=== PATIENT | female | born 1945 | race Caucasian/White ===

== ENCOUNTER 2024-01-27 15:39 | Inpatient (IN) | payer MEDICARE, OTHER, SELFPAY ==
[2024-01-27] VITALS (13 sets, daily range): BP systolic 92–154; BP diastolic 51–80; BMI 27.1; BMI 27.5
[2024-01-27 09:28] LABS: % Basophils 0.3 % (0-2); % Immature Granulocytes 0.8 % (0-0.5); % Lymphocytes 2.3 % (20.5-51.1); % Monocytes 10.8 % (1.7-9.3); % Neutrophils 85.8 % (42.2-75.2); Absolute Basophils 0.1 10^3/uL (0-0.2); Absolute Immature Granulocytes 0.2 10^3/uL (0-0.05); Absolute Lymphocytes 0.5 10^3/uL (1.2-3.4); Absolute Monocytes 2.1 10^3/uL (0.1-0.6); Hematocrit 32.9 % (37.0-47.0); Hemoglobin 11.9 g/dL (12.0-16.0); Mean Corp Hgb Conc. 36.2 g/dL (33.0-37.0); Mean Corpuscular Hgb 32.6 pg (27.0-31.0); Mean Corpuscular Volume 90.1 fL (81.0-99.0); Mean Platelet Volume 8.9 fL (7.4-10.4); Nucleated Red Blood Cells % 0 %; Platelet Count 252 10^3/uL (130-400); Red Blood Cell Count 3.65 10^6/uL (4.20-5.40); Red Cell Dist. Width 13.1 % (11.5-14.5); White Blood Cell Count 19.7 10^3/uL (4.8-10.8)
[2024-01-27] MEDS: TYLENOL 1000 MG PO (09:37)
[2024-01-27 09:38] LABS: ALT (SGPT) 49 U/L (0-35); AST (SGOT) 66 U/L (14-36); Alkaline Phosphatase 119 U/L (38-126); Blood Urea Nitrogen 17 mg/dl (7-17); Calcium 8.7 mg/dl (8.4-10.2); Carbon Dioxide 22 mmol/L (22-30); Chloride 93 mmol/L (98-107); Estimated Creatinine Clearance 36 ml/min; Glucose 147 mg/dl (70-99); Potassium 3.9 mmol/L (3.5-5.1); Sodium 125 mmol/L (135-145); Total Bilirubin 1.1 mg/dl (0.2-1.3); Total Protein 6.5 g/dl (6.3-8.2); eGFR 46.62
[2024-01-27] MEDS: NSS 1000 IV ×3 (09:38→19:42)
[2024-01-27 09:40] LABS: Lactic Acid 1.8 mmol/L (0.7-2.0)
--- NOTE | 2024-01-27 09:53 | ED.GENMED ---
History of Present Illness
General
Chief Complaint: Weakness
Time Seen by Provider: 01/27/24 09:09
History of Present Illness
History of Present Illness:
78-year-old female with history of hypothyroidism, hypertension presenting to the emergency department for generalized weakness and feeling unwell. Patient reports symptoms for the past 3 days. Reports that she has been having fevers at home as
well. Denies known sick contacts. She took a COVID test at home which was negative. She also reports she had a cystoscopy about a week ago for ongoing painful urination. Denies any present dysuria. Denies cough. Denies chest pain. Did have 1
episode of vomiting and diarrhea. Denies any abdominal pain. Reports that she has been feeling so weak that she has fallen, however denies significant injury from fall or head strike. Denies additional acute medical complaints.
Past History
Past History
ED Past Medical History: Hypothyroidism and Other (diverticulitis)
ED Past Surgical History: Other (hysterectomy)
Social History
Drug: None
Personal:
Living: with family
Phy Exam
Physical Exam
Physical Exam:
General: Well-appearing, no clinical signs of dehydration, nontoxic and in no acute distress
HEENT: protecting airway
Neck: appears supple
CV: Normal rhythm, tachycardic, no evidence of cyanosis
Resp: No accessory muscle use, no increased work of breathing, lungs clear to auscultation bilaterally
Abd: Soft and non-distended, no tenderness to palpation, normal bowel sounds
Extremities: No deformities, no swelling, no erythema, pulses and sensation intact
Neuro: alert, no focal neurologic deficit
: deferred
Rectal: deferred
Psych: Normal affect
Skin: Intact
Course
Orders/Labs/Results
Orders:
Orders
01/27/24 08:41
ECG [Electrocardiogram (*1)] Urgent
Reason for Study: Fatigue / Weakness
01/27/24 08:42
EKG- Treatment ONCE
01/27/24 09:15
Complete Blood Count/With Diff Urgent
Comprehensive Metabolic Panel Urgent
Lactate Level [Lactic Acid] Q4H
01/27/24 09:32
0.9% Sodium Chloride 1000 ml [Nss] 1,000 ml IV BOLUS
Acetaminophen [Tylenol] 1,000 mg PO NOW STA
CR Chest - 2 Views Urgent
Comment:
Reason For Exam: weakness, fever
01/27/24 09:40
COVID-19 Antigen Urgent
Source: Nasal Swab
Influenza A+B Rapid Molecular Urgent
FINN Source: Nasal Swab
Specimen Description:
01/27/24 10:33
Blood Culture Urgent
FINN Source: Blood/Venous
Specimen Description:
01/27/24 11:36
0.9% Sodium Chloride 1000 ml [Nss] 1,000 ml IV BOLUS
01/27/24 12:54
Urinalysis Reflex To Culture Urgent
Date Specimen was Collected: 01/27/24
Time Specimen was Collected: 10:41
Urine Microscopic Reflex Cult Urgent
Urine Culture Urgent
FINN Source: U
Specimen Description:
Date Specimen was Collected: 01/27/24
Time Specimen was Collected: 10:41
01/27/24 13:50
Cefepime HCl [Maxipime] 2,000 mg IV NOW STA
Abnormal Lab Results
01/27/24 01/27/24
09:15 12:54
WBC 19.7 H 10^3/uL
(4.8-10.8)
RBC 3.65 L 10^6/uL
(4.20-5.40)
Hgb 11.9 L g/dL
(12.0-16.0)
Hct 32.9 L %
(37.0-47.0)
MCH 32.6 H pg
(27.0-31.0)
Abs Immat Gran (auto) 0.2 H 10^3/uL
(0-0.05)
Absolute Neuts (auto) 17.0 H 10^3/uL
(1.4-6.5)
Absolute Lymphs (auto) 0.5 L 10^3/uL
(1.2-3.4)
Absolute Monos (auto) 2.1 H 10^3/uL
(0.1-0.6)
Immature Gran % 0.8 H %
(0-0.5)
Neutrophils % 85.8 H %
(42.2-75.2)
Lymphocytes % 2.3 L %
(20.5-51.1)
Monocytes % 10.8 H %
(1.7-9.3)
Sodium 125 L mmol/L
(135-145)
Chloride 93 L mmol/L
(98-107)
Creatinine 1.2 H mg/dL
(0.6-1.0)
Glucose 147 H mg/dl
(70-99)
AST 66 H U/L
(14-36)
ALT 49 H U/L
(0-35)
Urine Ketones Trace A
(Negative)
Ur Occult Blood Reflex 2+ A
(Negative)
Urine Bilirubin 1+ A
(Negative)
Leukocyte Esterase Rfl 2+ A
(Negative)
Urine Albumin (Reflex) 1+ A
(Neg - Trace)
01/27/24 09:15
01/27/24 09:15
Vital Signs
Initial and Last Documented VS:
Initial Vital Signs
Temp Pulse Resp BP Pulse Ox
99.5 F 125 22 92/57 94
01/27/24 08:35 01/27/24 08:35 01/27/24 08:35 01/27/24 08:35 01/27/24 08:35
Last Documented Vital Signs
Temp Pulse Resp BP Pulse Ox
99.2 F 89 34 110/79 93
01/27/24 09:31 01/27/24 13:00 01/27/24 13:00 01/27/24 13:00 01/27/24 12:00
MDM/Problems Addressed
MDM/Problems Addressed:
78-year-old female with history of hypothyroidism and hypertension presenting to the emergency department for generalized weakness and fever at home for 3 days. Vital signs on arrival significant for low blood pressure and tachycardia.
On exam, patient is in no acute distress. Vital signs however concerning for infection. Patient without true fever, 99.2 orally, however suspected likely febrile rectally. Patient is meeting SIRS criteria. For this reason laboratory analysis
obtained. Will obtain lactic acid. Will start on IV fluids. Unclear source of infection. Will swab for COVID and flu. Will obtain chest x-ray imaging. Given recent cystoscopy, will also check urinalysis.
09:55- Patient's sodium is 125, likely etiology of generalized weakness. Will continue IV fluids. Patient also with significant leukocytosis. Blood culture ordered
11:00 -chest x-ray without acute cardiopulmonary disease. Delay in antibiotic administration, pending urinalysis. Patient was unable to provide urine, on bladder scan, only 90 cc of urine. Suspect dehydration. Will administer another liter of
fluids. Holding antibiotics given hemodynamic stability, blood pressure is improved, normal lactic acid without concern for severe sepsis or septic shock.
14:00 -patient had to be straight cath, very dry. Urine does show evidence of infection. Will start cefepime. Otherwise patient requires admission for generalized weakness, hyponatremia, sepsis suspected from urinary source.
*Critical Care Note
Total Time (30-74mins, 75-104mins- exclusive of procedures): Not Applicable
ED Attending Note
-
Portions of this chart may have been created with voice recognition software.� Occasional wrong word or��sound alike� substitutions may have occurred due to the inherent limitations of voice recognition software.
Discharge Plan
Departure
Prescriptions:
No Action
polyvinyl alcohol [Dry Eyes] 1.4 % Drops
1 drp BOTH EYES Q6HPRN PRN (Reason: dry eyes)
milk thistle 175 mg Tablet
175 mg PO HS
cyanocobalamin (vitamin B-12) 1,000 mcg Tablet
1,000 mcg PO DAILY
Theragen Tablet
1 tab PO DAILY
valsartan-hydrochlorothiazide 80-12.5 mg Tablet
1 tab PO DAILY
levothyroxine 88 mcg Tablet
88 mcg PO DAILY
pantoprazole 40 mg Tablet,Delayed Release (Dr/Ec)
40 mg PO DAILY
vitamin B complex Tablet
1 tab PO DAILY
ezetimibe 10 mg Tablet
10 mg PO DAILY
Tylenol Cold and Flu Severe 7-15-055-200 mg Tablet
2 tab PO Q6HPRN PRN (Reason: cold symptoms)
lutein 10 mg Tablet
10 mg PO HS
vitamin D3-vitamin K2 (MK4) 1,000-100 unit-mcg Tablet
1 tab PO DAILY
Referrals:
Abdelrahman Trujillo DO [Family Provider] -
Interventions
Interventions:
*Risk Screen - Suicide Last Done: 01/27/24 08:35
*General Assessment Last Done: 01/27/24 08:35
*Neglect/Abuse Screening Last Done: 01/27/24 08:35
ED- Cardiac Assessment Last Done: 01/27/24 09:17
ED- Neurological Assessment Last Done: 01/27/24 09:17
ED- Pulmonary Assessment Last Done: 01/27/24 09:17
Discharge Date and Time
Print Language: GREEK
[2024-01-27 10:14] LABS: COVID-19 Antigen Negative (Negative)
[2024-01-27 13:46] LABS: Urine Albumin 1+ (Neg - Trace); Urine Bilirubin 1+ (Negative); Urine Character Very Cloudy (Clear); Urine Color Amber; Urine Glucose Negative (Negative); Urine Ketone Trace (Negative); Urine Leukocyte 2+ (Negative); Urine Nitrite Negative (Negative); Urine Occult Blood 2+ (Negative); Urine Urobilinogen 1+ (Neg - 1+)
[2024-01-27] MEDS: MAXIPIME 2000 MG IV (13:56)
[2024-01-27 14:02] LABS: Urine Bacteria Moderate (Negative); Urine Squamous Cell 0-2 /LPF (Few)
[2024-01-27 14:03] LABS: Urine Red Blood Cell 0-2 /HPF (0-2); Urine White Cell 50-60 /HPF (0-5)
--- NOTE | 2024-01-27 15:14 | W.PN.UPDATE ---
Update Note
Progress Note Update
I personally performed a history and physical exam of the patient and discussed management with the resident. I reviewed the resident's note and agree with the documented findings and plan of care HPI/CC.
78-year-old female with a pertinent past medical history of recurrent urinary tract infections who is 6 days s/p cystoscopy who presents with CC weakness. Patient was hypotensive and tachycardic in the ER.
124/72, 88, 17, 99.2 �F, 95% RAGen: NAD, AAOx3.
Eyes: EOMI, PERRLA, no scleral icterus.
Neck: supple.
CV: RRR, +S1/S2, no m/r/g.
Resp: CTAB, no rales, wheezes, or rhonchi.
Abd: +BS, soft, NT, ND
Skin: No rashes.
Neuro: CN 2-12 intact, non-focal.
Psych: Normal mood and affect.
Lab Results
01/27/24 01/27/24 01/27/24
09:15 09:40 09:46
WBC 19.7 H
RBC 3.65 L
Hgb 11.9 L
Hct 32.9 L
MCV 90.1
MCH 32.6 H
MCHC 36.2
RDW 13.1
Plt Count 252
MPV 8.9
Abs Immat Gran (auto) 0.2 H
Absolute Neuts (auto) 17.0 H
Absolute Lymphs (auto) 0.5 L
Absolute Monos (auto) 2.1 H
Absolute Eos (auto) 0.0
Absolute Basos (auto) 0.1
Immature Gran % 0.8 H
Neutrophils % 85.8 H
Lymphocytes % 2.3 L
Monocytes % 10.8 H
Eosinophils % 0.0
Basophils % 0.3
Nucleated RBC % 0
Sodium 125 L
Potassium 3.9
Chloride 93 L
Carbon Dioxide 22
BUN 17
Creatinine 1.2 H
Estimated Creat Clear 36
eGFR 46.62
Glucose 147 H
Lactic Acid 1.8 Cancelled
Calcium 8.7
Total Bilirubin 1.1
AST 66 H
ALT 49 H
Alkaline Phosphatase 119
Total Protein 6.5
Albumin 4.0
Urine Color
Urine Clarity
Urine pH
Ur Specific [place]
Urine Ketones
Ur Occult Blood Reflex
Urine Nitrite (Reflex)
Urine Bilirubin
Urine Urobilinogen
Leukocyte Esterase Rfl
Urine RBC
Urine WBC (Reflex)
Ur Squamous Epith Cells
Urine Bacteria (Reflex)
Urine Glucose
Urine Albumin (Reflex)
SARS-CoV-2 Antigen Negative
01/27/24 01/27/24
12:54 13:15
WBC
RBC
Hgb
Hct
MCV
MCH
MCHC
RDW
Plt Count
MPV
Abs Immat Gran (auto)
Absolute Neuts (auto)
Absolute Lymphs (auto)
Absolute Monos (auto)
Absolute Eos (auto)
Absolute Basos (auto)
Immature Gran %
Neutrophils %
Lymphocytes %
Monocytes %
Eosinophils %
Basophils %
Nucleated RBC %
Sodium
Potassium
Chloride
Carbon Dioxide
BUN
Creatinine
Estimated Creat Clear
eGFR
Glucose
Lactic Acid Cancelled
Calcium
Total Bilirubin
AST
ALT
Alkaline Phosphatase
Total Protein
Albumin
Urine Color Alix
Urine Clarity Very cloudy
Urine pH 5.0
Ur Specific [place] 1.020
Urine Ketones Trace A
Ur Occult Blood Reflex 2+ A
Urine Nitrite (Reflex) Negative
Urine Bilirubin 1+ A
Urine Urobilinogen 1+
Leukocyte Esterase Rfl 2+ A
Urine RBC 0-2
Urine WBC (Reflex) 50-60 A
Ur Squamous Epith Cells 0-2
Urine Bacteria (Reflex) Moderate A
Urine Glucose Negative
Urine Albumin (Reflex) 1+ A
SARS-CoV-2 Antigen
CXR (read by me): No radiographic evidence of acute cardiopulmonary abnormality.
LEON and mild transaminitis due to severe sepsis due to acute UTI:
-30cc/kg IVF bolus followed by maintenance IVFs
-IV Rocephin
-follow UCx/BCx
-trend Cr
-hold home antihypertensive meds
Hyponatremia:
-Patient requires fluid resuscitation at this time due to severe sepsis
-Trend Na with IVFs
-check serum Osm, UOsm, Ciaran
--- NOTE | 2024-01-27 15:34 | HPS.HSE ---
Family Physician
-
Family Physician: Abdelrahman Trujillo, DO
Chief Complaint
-
Generalized weakness
History of Present Illness
78-year-old female presents to the ED with generalized weakness. For the past few days she has had a history of fevers,chills, muscle aches, weakness, nausea, vomiting, diarrhea. Yesterday she fell twice and was unable to stand back up because she
was so weak which is what prompted her to come to the ED. She denies any trauma or loss of consciousness. She denies any chest pain, heart palpitations, or abdominal pain. She has a history of recurrent UTIs and had a cystoscopy done on Saturday
for evaluation of bloody urine. She generally has a few UTIs a year but this past year has been especially bad. She currently denies any UTI symptoms.
ED: BP 92/57, HR 125, RR 22, temp 99.5, WBC 19.7, Lactic acid 1.8, Na 125, Cr 1.2 (baseline 0.6), UA Leukocyte esterase (+), 50-60 WBC, 0-2 squamous epithelia cells, moderate bacteria, she was given 2 L of fluid and cefepime.
Medical History
Past Medical History
Past Medical History: Reports Other (Hypothyroidism, hypertension, recurrent UTIs, GERD, hyperlipidemia, beginnings of macular degeneration, diverticulitis)
Past Surgical History: Reports Other (Hysterectomy, colon resection (secondary to the diverticulitis))
Social History
Tobacco: Former Smoker (Quit 40 years ago. Prior 10 year 1ppd hx)
Alcohol: Occasional
Drug: None
Family History
Family History: Other (mom - heart dz, dad - lung cancer, paternal grandfather - melanoma)
Allergies / Home Medications
Allergies reflects when Allergies were last updated in [facility].
Home Medications with original date entered in [facility]
Allergy/Medication List:
Allergies
Allergy/AdvReac Type Severity Reaction Status Date / Time
No Known Drug Allergies Allergy NONE Verified 01/27/24 08:35
Home Medications
cholecalciferol (vit D3) 1,000 unit-vitamin K2 (MK4) 100 mcg tablet 1 tab PO DAILY 01/27/24
cyanocobalamin (vitamin B-12) 1,000 mcg tablet 1,000 mcg PO DAILY 01/27/24
ezetimibe 10 mg tablet 10 mg PO DAILY 01/27/24
levothyroxine 88 mcg tablet 88 mcg PO DAILY 01/27/24
lutein 10 mg tablet 10 mg PO HS 01/27/24
milk thistle 175 mg tablet 175 mg PO HS 01/27/24
pantoprazole 40 mg tablet,delayed release 40 mg PO DAILY 01/27/24
xnhtmzkfqzgjn-LU-ldwvnlvigwcsp-guaifen 5 mg-10 mg-325 mg-200 mg tablet (Tylenol Cold and Flu Severe) 2 tab PO Q6HPRN PRN cold symptoms 01/27/24
polyvinyl alcohol 1.4 % eye drops 1 drp BOTH EYES Q6HPRN PRN dry eyes 01/27/24
therapeutic multivitamin 1 tab PO DAILY 01/27/24
valsartan 80 mg-hydrochlorothiazide 12.5 mg tablet 1 tab PO DAILY 01/27/24
vitamin B complex 1 tab PO DAILY 01/27/24
Review of Systems
-
History Source: Patient
Constitutional: Reports Fever, Fatigue and Chills
EENT: Reports No Symptoms
Respiratory: Reports No Symptoms
Cardiac: Reports No Symptoms
Abdomen/GI: Reports No Symptoms
: Reports No Symptoms
Musculoskeletal: Reports No Symptoms
Skin: Reports No Symptoms
Neurological: Reports No Symptoms
Psych: Reports Calm
Physical Exam
Vital Signs
Vital Signs
Temp Pulse Resp BP Pulse Ox
99.2 F 88 17 124/72 95
01/27/24 09:31 01/27/24 15:01 01/27/24 15:01 01/27/24 15:01 01/27/24 15:01
Physical Exam
General: Comfortable and Conversant
Respiratory: Clear
Cardiac: S1/S2 and Regular Rhythm
GI: Soft, Non Tender, Non Distended and Other (no suprapubic tenderness)
Genito-urinary: No No costovertebral tender
Musculoskeletal: No Edema
Skin: Warm and Dry
Neuro: AO x 3
Psych: Calm
Laboratory Results
-
01/27/24 09:15
01/27/24 09:15
Laboratory Results
Lactic Acid Cancelled 01/27/24 13:15
Total Bilirubin 1.1 mg/dl (0.2-1.3) 01/27/24 09:15
AST 66 U/L (14-36) H 01/27/24 09:15
ALT 49 U/L (0-35) H 01/27/24 09:15
Alkaline Phosphatase 119 U/L (38-126) 01/27/24 09:15
Impression/Plan
-
IMPRESSION/PLAN:
# Sepsis secondary to UTI
BP 92/57, heart rate 125, RR 22, WBC 19.7, lactic 1.8
UTI 2+ leukocyte esterase, 50-60 WBC, moderate bacteria, 2+ blood
COVID-negative
Chest x-ray negative
2 L NSS given in ED
Continue with maintenance fluid as pt BP has stabilized
d/c cefepime, continue with ceftriaxone
1 blood culture pending -- taken in ED, then antibiotics given so not taking a second blood culture
Urine culture pending
Antihypertensives on hold
Medical records for cystoscopy results requested
# Hyponatremia
NA 125 on admission
Giving fluids due to hypotension and sepsis
Urine osml, serum osml, urine sodium
Hold valsartan/HTCZ
# LEON
Creatinine 1.6 on admission
Baseline 0.6
Hold valsartan, hydrochlorothiazide
Bladder scan protocol
# Hypotension
Hold antihypertensives
Fluids
# Transaminitis
Patient has a history of elevated LFTs for which she takes milk thistle
Stated it occurred after being on a statin continues taking the supplement
AST 66 ALT 49 on admission likely secondary to sepsis
Monitor
# Anemia - baseline 11-12 - monitor
# Essential hypertension--current antihypertensives are on hold--restart when BP stabilizes
# Hypothyroidism--continue levothyroxine
# GERD--continue pantoprazole
# Hyperlipidemia--continue ezetimibe
#Macular degeneration--continue eyedrops and eye vitamins
#hx colon resection secondary to diverticultits
#hx hysterectomy
[2024-01-27] MEDS: TYLENOL 650 MG PO (17:18)
[2024-01-27 18:21] LABS: Osmolality Urine 368 mOsm/kg (300-900)
[2024-01-27 18:43] LABS: Urine Sodium 19 mmol/L (30-90)
[2024-01-27 19:23] LABS: Osmolality Serum 262 mOsm/kg (275-300)
[2024-01-27] MEDS: FLUSH (NSS) 1 FLUSH IV (19:45)
[2024-01-27] MEDS: HEPARIN 5000 UNITS SC (20:32)
[2024-01-27] MEDS: ZOFRAN 4 MG IV (20:33)
[2024-01-28] VITALS (7 sets, daily range): BP systolic 100–145; BP diastolic 49–75; PULSE 92; O2SAT 99
[2024-01-28] MEDS: TYLENOL 650 MG PO ×4 (00:03→20:32)
[2024-01-28] MEDS: SYNTHROID 88 MCG PO (04:48)
[2024-01-28] MEDS: NSS 1000 IV (06:04)
[2024-01-28 08:50] LABS: Hematocrit 27.2 % (37.0-47.0); Hemoglobin 9.4 g/dL (12.0-16.0); Mean Corp Hgb Conc. 34.6 g/dL (33.0-37.0); Mean Corpuscular Hgb 31.1 pg (27.0-31.0); Mean Corpuscular Volume 90.1 fL (81.0-99.0); Mean Platelet Volume 9.3 fL (7.4-10.4); Platelet Count 240 10^3/uL (130-400); Red Blood Cell Count 3.02 10^6/uL (4.20-5.40); Red Cell Dist. Width 13.2 % (11.5-14.5); White Blood Cell Count 17.2 10^3/uL (4.8-10.8)
[2024-01-28 09:07] LABS: ALT (SGPT) 28 U/L (0-35); AST (SGOT) 35 U/L (14-36); Albumin 2.9 g/dl (3.5-5.0); Alkaline Phosphatase 97 U/L (38-126); Blood Urea Nitrogen 12 mg/dl (7-17); Calcium 7.8 mg/dl (8.4-10.2); Carbon Dioxide 18 mmol/L (22-30); Chloride 100 mmol/L (98-107); Estimated Creatinine Clearance 62 ml/min; Glucose 88 mg/dl (70-99); Potassium 3.7 mmol/L (3.5-5.1); Sodium 126 mmol/L (135-145); Total Bilirubin 0.6 mg/dl (0.2-1.3); eGFR > 60.00
[2024-01-28 09:10] LABS: % Basophils 0.3 % (0-2); % Eosinophils 0.1 % (0-6); % Lymphocytes 3.8 % (20.5-51.1); % Monocytes 13.8 % (1.7-9.3); Absolute Basophils 0.1 10^3/uL (0-0.2); Absolute Immature Granulocytes 0.2 10^3/uL (0-0.05); Absolute Lymphocytes 0.7 10^3/uL (1.2-3.4); Absolute Monocytes 2.4 10^3/uL (0.1-0.6); Nucleated Red Blood Cells % 0 %
--- NOTE | 2024-01-28 09:47 | W.PN.HOSP.TC ---
Addendum entered and electronically signed by Junior Perdue MD 01/28/24 11:03:
I saw and evaluated the patient. I reviewed the resident�s note and agree with findings and plan as documented in the resident�s note.
Gen: NAD, AAOx3.
Eyes: EOMI, PERRLA, no scleral icterus.
Neck: supple.
CV: remains RRR, +S1/S2, no m/r/g.
Resp: remains CTAB, no rales, wheezes, or rhonchi.
Abd: remains +BS, soft, NT, ND
Skin: No rashes.
Neuro: CN 2-12 intact, non-focal.
Psych: Normal mood and affect.
CXR (read by me): No radiographic evidence of acute cardiopulmonary abnormality.
LEON and mild transaminitis due to severe sepsis due to acute UTI:
-30cc/kg IVF bolus followed by maintenance IVFs
-IV Rocephin
-follow UCx (E coli, follow susceptibilities)/BCx
-Cr normal, LEON resolved
-holding home antihypertensive meds
Hyponatremia:
-Serum Osm 262, UOsm 368, Ciaran 19
-Patient required fluid resuscitation due to severe sepsis
-Trend Na with IVFs
Original Note:
Today's Communication/Plan
-
Continue fluids and Rocephin. Monitor BMP
Assessment / Plan
Assessment / Plan
# Sepsis secondary to UTI
BP 92/57, heart rate 125, RR 22, WBC 19.7, lactic 1.8
UTI 2+ leukocyte esterase, 50-60 WBC, moderate bacteria, 2+ blood
COVID-negative
Chest x-ray negative
2 L NSS given in ED
Continue with maintenance fluid as pt BP has stabilized
d/c cefepime, continue with ceftriaxone
Follow urine and blood cultures
Antihypertensives on hold
Medical records for cystoscopy results requested
# Hyponatremia
NA 125 on admission. Today 126
Giving fluids due to hypotension and sepsis
Hold valsartan/HTCZ
Serum osml slightly low, urine osml normal low
Likely dehydration
Continue fluids
# LEON
Creatinine 1.6 on admission
Baseline 0.6
Hold valsartan, hydrochlorothiazide
Bladder scan normal. No post-bladder obstruction.
# Hypotension
Hold antihypertensives
Fluids
# Transaminitis
resolved
# Anemia - baseline 11-12 - today 9.4. Likely dilution with fluids. Monitor
# Essential hypertension--current antihypertensives are on hold--restart when BP stabilizes
# Hypothyroidism--continue levothyroxine
# GERD--continue pantoprazole
# Hyperlipidemia--continue ezetimibe
#Macular degeneration--continue eyedrops and eye vitamins
#hx colon resection secondary to diverticultits
#hx hysterectomy
Anticipated Discharge: 24 - 48 hours
Subjective/Interval History
-
Date of Service: January 28, 2024
Pt feels better than yesterday but still weak. Was able to eat breakfast unlike not being able to eat last few days.
Objective Data
-
Labs:
Laboratory Results
01/28/24
07:31
WBC 17.2 H
Hgb 9.4 L D
Hct 27.2 L
Plt Count 240
Sodium 126 L
Potassium 3.7
Chloride 100
Carbon Dioxide 18 L
BUN 12
Creatinine 0.7
Glucose 88
Calcium 7.8 L
Total Bilirubin 0.6
AST 35
ALT 28
Alkaline Phosphatase 97
Vital Signs:
Vital Signs
Temp Pulse Resp BP Pulse Ox
98.5 F 85 20 109/55 95
01/28/24 07:00 01/28/24 07:00 01/28/24 07:00 01/28/24 07:00 01/28/24 07:00
I&O
01/27/24 01/28/24 01/29/24
06:59 06:59 06:59
Intake Total 0 / 0
Output Total 200 / 200
Balance -200 / -200
Review of Systems
-
History Source: Patient
Constitutional: Reports Chills (during the night)
EENT: Reports No Symptoms Reported
Respiratory: Reports No Symptoms
Cardiac: Reports No Symptoms
Abdomen/GI: Reports No Symptoms
Genitourinary: Reports No Symptoms
Musculoskeletal: Reports No Symptoms
Skin: Reports No Symptoms
Neuro: Reports Headache and Weakness
Physical Exam
-
General: No Apparent Distress
Respiratory: Clear to Auscultation
Cardiac: Regular Rhythm and S1/S2
GI: Soft, Nontender and Nondistended
Musculoskeletal: No Edema
Skin: Warm and Dry
Neuro: AO x 3
Psych: Calm
[2024-01-28 09:53] LABS: Hepatitis C Antibody Negative (Negative)
--- NOTE | 2024-01-28 10:20 | CM ---
Patient seen bedside, initial assessment completed. Patient resides independently in a two story home, one step to enter. Patient denies use of DME in the home, reports VN in the past after a cyst was removed on her back, denies SNF. Patient
confirms PCP Abdelrahman Trujillo, pharmacy [facility] in [place]. Patient confirms prescription coverage, denies food, housing/utility, transportation insecurities. Watch for PT/OT evaluations for further recommendations. Patient on IV antibiotics. CM will
continue to follow for all discharge planning needs.
Plan; home no needs vs VN, watch for PT/OT evals.
[2024-01-28] MEDS: ROCEPHIN 1000 MG IV (10:42)
[2024-01-28] MEDS: STERILE WATER FOR INJECTION 10 ML IV (10:43)
[2024-01-28] MEDS: PROTONIX 40 MG PO (10:43)
[2024-01-28] MEDS: VITAMIN B-12 1000 MCG PO (10:43)
[2024-01-28] MEDS: HEPARIN 5000 UNITS SC ×2 (10:43→20:31)
[2024-01-28] MEDS: B COMPLEX w/VITAMIN C 1 CAPLET PO (10:43)
[2024-01-28] MEDS: ZETIA 10 MG PO (10:43)
--- NOTE | 2024-01-28 12:04 | PTOTSP ---
Pt is able to get OOB and ambulate independently without need for any assistive device. No acute PT needs were identified. PT will sign off.
[2024-01-28 12:30] LABS: Glycohemoglobin (HgbA1c) 5.7 % (4.0-5.6)
[2024-01-28] MEDS: NSS IV (12:37)
[2024-01-28] MEDS: SODIUM BICARBONATE 1075 MEQ IV (12:42)
[2024-01-29] MEDS: TYLENOL 650 MG PO ×2 (00:33→15:24)
[2024-01-29] MEDS: SODIUM BICARBONATE 1075 MEQ IV ×2 (01:06→11:00)
--- NOTE | 2024-01-29 04:34 | DOWNTIME ---
There was a [employer] Assistant [employer] Downtime on 01/29/2024 from 0100 to 01/29/2024 at 0252. Downtime documentation of patient's care, including medication administrations, has been reconciled in the electronic record per guidelines. Refer to the
patient's paper chart under the miscellaneous tab to see printed paper medication records and downtime forms.
[2024-01-29] MEDS: SYNTHROID 88 MCG PO (05:59)
[2024-01-29 07:35] VITALS: BP 127/68
[2024-01-29] MEDS: ROCEPHIN 1000 MG IV (08:06)
[2024-01-29] MEDS: VITAMIN B-12 1000 MCG PO (08:07)
[2024-01-29] MEDS: B COMPLEX w/VITAMIN C 1 CAPLET PO (08:07)
[2024-01-29] MEDS: PROTONIX 40 MG PO (08:07)
[2024-01-29] MEDS: STERILE WATER FOR INJECTION 10 ML IV (08:07)
[2024-01-29] MEDS: HEPARIN 5000 UNITS SC ×2 (08:07→21:13)
[2024-01-29] MEDS: ZETIA 10 MG PO (08:07)
[2024-01-29 10:13] LABS: ALT (SGPT) 26 U/L (0-35); AST (SGOT) 35 U/L (14-36); Albumin 2.9 g/dl (3.5-5.0); Alkaline Phosphatase 180 U/L (38-126); Blood Urea Nitrogen 9 mg/dl (7-17); Calcium 8.1 mg/dl (8.4-10.2); Carbon Dioxide 28 mmol/L (22-30); Chloride 97 mmol/L (98-107); Estimated Creatinine Clearance 72 ml/min; Glucose 93 mg/dl (70-99); Potassium 3.6 mmol/L (3.5-5.1); Sodium 131 mmol/L (135-145); Total Bilirubin 0.5 mg/dl (0.2-1.3); Total Protein 5.3 g/dl (6.3-8.2); eGFR > 60.00
[2024-01-29 10:18] LABS: % Basophils 0.4 % (0-2); % Eosinophils 0.4 % (0-6); % Immature Granulocytes 0.7 % (0-0.5); % Lymphocytes 7.5 % (20.5-51.1); % Monocytes 11.3 % (1.7-9.3); % Neutrophils 79.7 % (42.2-75.2); Absolute Basophils 0.1 10^3/uL (0-0.2); Absolute Eosinophils 0.1 10^3/uL (0-0.7); Absolute Immature Granulocytes 0.1 10^3/uL (0-0.05); Absolute Lymphocytes 1.2 10^3/uL (1.2-3.4); Absolute Monocytes 1.8 10^3/uL (0.1-0.6); Absolute Neutrophils 12.8 10^3/uL (1.4-6.5); Hematocrit 26.8 % (37.0-47.0); Hemoglobin 9.5 g/dL (12.0-16.0); Mean Corp Hgb Conc. 35.4 g/dL (33.0-37.0); Mean Corpuscular Hgb 31.4 pg (27.0-31.0); Mean Corpuscular Volume 88.4 fL (81.0-99.0); Mean Platelet Volume 9.3 fL (7.4-10.4); Nucleated Red Blood Cells % 0 %; Platelet Count 297 10^3/uL (130-400); Red Blood Cell Count 3.03 10^6/uL (4.20-5.40); Red Cell Dist. Width 13.2 % (11.5-14.5)
--- NOTE | 2024-01-29 10:47 | W.PN.HOSP.TC ---
Addendum entered and electronically signed by Junior Perdue MD 01/29/24 11:40:
I saw and evaluated the patient. I reviewed the resident�s note and agree with findings and plan as documented in the resident�s note.
Gen: NAD, AAOx3.
Eyes: EOMI, PERRLA, no scleral icterus.
Neck: supple.
CV: remains RRR, +S1/S2, no m/r/g.
Resp: remains CTAB, no rales, wheezes, or rhonchi.
Abd: remains +BS, soft, NT, ND
Skin: No rashes.
Neuro: CN 2-12 intact, non-focal.
Psych: Normal mood and affect.
CXR (read by me): No radiographic evidence of acute cardiopulmonary abnormality.
LEON and mild transaminitis due to severe sepsis due to acute E coli UTI:
-30cc/kg IVF bolus followed by maintenance IVFs
-cont IV Rocephin
-remains febrile
-BCx NGTD
-Cr normal, LEON resolved
-holding home antihypertensive meds
-non-AG met acidosis now resolved with IVFs with bicarb, stop IVFs
Hyponatremia:
-improved with IVFs with bicarb
Hyponatremia:
-Serum Osm 262, UOsm 368, Ciaran 19
-Patient required fluid resuscitation due to severe sepsis
-Trend Na with IVFs
Original Note:
Today's Communication/Plan
-
Culture sensitive to ceftriaxone. Continue ceftriaxone and fluids. Monitor WBC and sodium
Assessment / Plan
Assessment / Plan
# Sepsis secondary to UTI
BP 92/57, heart rate 125, RR 22, WBC 19.7, lactic 1.8
UTI 2+ leukocyte esterase, 50-60 WBC, moderate bacteria, 2+ blood
Continue with maintenance fluid
Urine cultures + with E.coli. Sensitive to ceftriaxone. Continue
WBC slowly downtrending
Blood culture (-)
Antihypertensives on hold
Medical records for cystoscopy results requested
# Hyponatremia
NA 125 on admission. Today 131
Continue fluids
Hold valsartan/HTCZ
# LEON
Creatinine 1.6 on admission
Baseline 0.6
Now 0.5, resolved
Hold valsartan, hydrochlorothiazide
# Hypotension
Resolved
# Transaminitis
resolved
# Anemia - baseline 11-12 - today 9.5. Likely dilution with fluids. Monitor
# Essential hypertension--current antihypertensives are on hold--restart when BP stabilizes
# Hypothyroidism--continue levothyroxine
# GERD--continue pantoprazole
# Hyperlipidemia--continue ezetimibe
#Macular degeneration--continue eyedrops and eye vitamins
#hx colon resection secondary to diverticultits
#hx hysterectomy
Anticipated Discharge: 24 - 48 hours
Subjective/Interval History
-
Date of Service: January 29, 2024
Pt still feeling unwell. States she is okay on Tylenol but when it wears off she feels very sick again. Spiked fever overnight.
Objective Data
-
Labs:
Laboratory Results
01/29/24
08:39
WBC 16.0 H
Hgb 9.5 L
Hct 26.8 L
Plt Count 297 D
Sodium 131 L
Potassium 3.6
Chloride 97 L
Carbon Dioxide 28
BUN 9
Creatinine 0.5 L
Glucose 93
Calcium 8.1 L
Total Bilirubin 0.5
AST 35
ALT 26
Alkaline Phosphatase 180 H
Vital Signs:
Vital Signs
Temp Pulse Resp BP Pulse Ox
98.2 F 70 18 127/68 97
01/29/24 07:35 01/29/24 07:35 01/29/24 07:35 01/29/24 07:35 01/29/24 07:35
I&O
01/28/24 01/29/24 01/30/24
06:59 06:59 06:59
Intake Total 0 / 0 1800 / 1800
Output Total 200 / 200
Balance -200 / -200 1800 / 1800
Review of Systems
-
History Source: Patient
Constitutional: Reports Fever (Fever last night), Fatigue, Chills and Weakness
Respiratory: Reports No Symptoms
Cardiac: Reports No Symptoms
Abdomen/GI: Reports No Symptoms
Genitourinary: Reports No Symptoms
Neuro: Reports No Symptoms
Physical Exam
-
Respiratory: Clear to Auscultation
Cardiac: Regular Rhythm and S1/S2
GI: Soft, Nontender and Nondistended
Musculoskeletal: No Edema
Skin: Warm and Dry
Neuro: AO x 3
Psych: Calm
--- NOTE | 2024-01-29 14:54 | CM ---
Patient seen bedside.
Patient denies home care needs.
Patient aware of CM availability should needs arise.
Plan: home no needs.
[2024-01-29 15:15] VITALS: BP 128/78
[2024-01-29 23:34] VITALS: BP 148/83
[2024-01-30] MEDS: TYLENOL 650 MG PO (03:16)
[2024-01-30] MEDS: SYNTHROID 88 MCG PO (06:00)
[2024-01-30 06:54] VITALS: BP 135/67
[2024-01-30 07:12] LABS: Hematocrit 28.5 % (37.0-47.0); Hemoglobin 9.9 g/dL (12.0-16.0); Mean Corp Hgb Conc. 34.7 g/dL (33.0-37.0); Mean Corpuscular Hgb 31.9 pg (27.0-31.0); Mean Corpuscular Volume 91.9 fL (81.0-99.0); Mean Platelet Volume 8.5 fL (7.4-10.4); Platelet Count 288 10^3/uL (130-400); White Blood Cell Count 10.5 10^3/uL (4.8-10.8)
[2024-01-30 07:32] LABS: ALT (SGPT) 29 U/L (0-35); AST (SGOT) 39 U/L (14-36); Albumin 2.9 g/dl (3.5-5.0); Alkaline Phosphatase 191 U/L (38-126); Blood Urea Nitrogen 10 mg/dl (7-17); Calcium 8.4 mg/dl (8.4-10.2); Carbon Dioxide 28 mmol/L (22-30); Chloride 96 mmol/L (98-107); Estimated Creatinine Clearance 72 ml/min; Glucose 85 mg/dl (70-99); Potassium 3.7 mmol/L (3.5-5.1); Sodium 134 mmol/L (135-145); Total Bilirubin 0.5 mg/dl (0.2-1.3); Total Protein 5.2 g/dl (6.3-8.2); eGFR > 60.00
--- NOTE | 2024-01-30 09:14 | W.PN.HOSP.TC ---
Addendum entered and electronically signed by Junior Perdue MD 01/30/24 11:10:
I saw and evaluated the patient. I reviewed the resident�s note and agree with findings and plan as documented in the resident�s note.
Gen: NAD, AAOx3.
Eyes: EOMI, PERRLA, no scleral icterus.
Neck: supple.
CV: continues to remain RRR, +S1/S2, no m/r/g.
Resp: continues to remain CTAB, no rales, wheezes, or rhonchi.
Abd: continues to remain +BS, soft, NT, ND
Skin: No rashes.
Neuro: CN 2-12 intact, non-focal.
Psych: Normal mood and affect.
CXR (read by me): No radiographic evidence of acute cardiopulmonary abnormality.
LEON and mild transaminitis due to severe sepsis due to acute E coli UTI:
-30cc/kg IVF bolus followed by maintenance IVFs
-was on IV Rocephin, transition to Bactrim on d/c
-now afebrile
-BCx NGTD
-Cr normal, LEON resolved
-home antihypertensive meds where held, restart Valsartan on d/c
-non-AG met acidosis now resolved with IVFs with bicarb, stop IVFs
Hyponatremia:
-improved with IVFs with bicarb
-was likely due to HCTZ and LEON/dehydration, no HCTZ on d/c
Medically cleared for discharge.
Total time spent on d/c = 35 min. This included today's physical exam, progress note, review of laboratory and diagnostic data, preparation of discharge documents and prescriptions, and discussions about the pt's hospital course and discharge plan
with the patient and other biomedical equipment tech involved in the patient's care.
Original Note:
Today's Communication/Plan
-
d/c fluids, one more dose Rocephin, consider discharge tmrw
Assessment / Plan
Assessment / Plan
# Sepsis secondary to UTI
BP 92/57, heart rate 125, RR 22, WBC 19.7, lactic 1.8 on admission
UTI 2+ leukocyte esterase, 50-60 WBC, moderate bacteria, 2+ blood
BP stabilized, d/c fluids
Urine cultures + with E.coli. Sensitive to ceftriaxone. One more dose
WBC normal
Blood culture (-)
Antihypertensives on hold
Medical records for cystoscopy results requested
# Hyponatremia
NA 125 on admission. Today 134
Continue fluids
Hold valsartan/HTCZ
# LEON
resolved
Hold valsartan, hydrochlorothiazide
# Hypotension
Resolved
# Transaminitis
increase in alkaline phosphatase 191
Monitor
# Anemia - baseline 11-12 - slowly increasing
# Essential hypertension--current antihypertensives are on hold--restart when BP stabilizes
# Hypothyroidism--continue levothyroxine
# GERD--continue pantoprazole
# Hyperlipidemia--continue ezetimibe
#Macular degeneration--continue eyedrops and eye vitamins
#hx colon resection secondary to diverticultits
#hx hysterectomy
Anticipated Discharge: Within 24 hours
Subjective/Interval History
-
Date of Service: January 30, 2024
Pt still feels weak but significantly better
Objective Data
-
Labs:
Laboratory Results
01/30/24
06:55
WBC 10.5
Hgb 9.9 L
Hct 28.5 L
Plt Count 288
Sodium 134 L
Potassium 3.7
Chloride 96 L
Carbon Dioxide 28
BUN 10
Creatinine 0.6
Glucose 85
Calcium 8.4
Total Bilirubin 0.5
AST 39 H
ALT 29
Alkaline Phosphatase 191 H
Vital Signs:
Vital Signs
Temp Pulse Resp BP Pulse Ox
98.3 F 61 18 135/67 94
01/30/24 06:54 01/30/24 06:54 01/30/24 06:54 01/30/24 06:54 01/30/24 06:54
I&O
01/29/24 01/30/24 01/31/24
06:59 06:59 06:59
Intake Total 1800 / 1800 1800 / 1800
Balance 1800 / 1800 1800 / 1800
Review of Systems
-
History Source: Patient
Constitutional: Reports Fatigue and Weakness
EENT: Reports No Symptoms Reported
Respiratory: Reports No Symptoms
Cardiac: Reports No Symptoms
Abdomen/GI: Reports No Symptoms
Genitourinary: Reports No Symptoms
Neuro: Reports Weakness
Physical Exam
-
General: No Apparent Distress
Respiratory: Clear to Auscultation
Cardiac: Regular Rhythm and S1/S2
GI: Soft, Nontender and Nondistended
Musculoskeletal: No Edema
Skin: Warm and Dry
Neuro: AO x 3
Psych: Calm
[2024-01-30] MEDS: VITAMIN B-12 1000 MCG PO (09:27)
[2024-01-30] MEDS: PROTONIX 40 MG PO (09:27)
[2024-01-30] MEDS: STERILE WATER FOR INJECTION 10 ML IV (09:28)
[2024-01-30] MEDS: ROCEPHIN 1000 MG IV (09:28)
[2024-01-30] MEDS: HEPARIN 5000 UNITS SC (09:28)
[2024-01-30] MEDS: B COMPLEX w/VITAMIN C 1 CAPLET PO (09:28)
[2024-01-30] MEDS: ZETIA 10 MG PO (09:28)
--- NOTE | 2024-01-30 11:37 | CM ---
Brittany is ready for discharge to home today. SANCHEZ met with Brittany prior to discharge as she was reviewing d/c instructions with HARESH Hinojosa. She advised no needs at this time and is eager to return home. Her daughter will drive her home today.
Plan: Discharge to home with no needs.
PCP: Abdelrahman Trujillo
[facility]
[2024-01-30 11:47] VITALS: BP 157/78
--- NOTE | 2024-01-30 11:53 | W.DCSUMMARY ---
Discharge Summary
Discharge Data
Date of Admission: 01/27/24
Date of Discharge: 01/30/24
-
Pending Results: No
Hospital Course
Primary diagnosis:
Sepsis secondary to UTI
Hyponatremia
Acute kidney injury
Hypotension
Transaminitis
Secondary diagnosis:
Anemia
Essential hypertension
Hypothyroidism
GERD
Hyperlipidemia lipidemia
Macular degeneration
Brittany is a 78-year-old female with a past medical history of UTIs who presented to the ED on 01/27/2024 with generalized weakness. For the past few days she had had fever, chills, muscle aches, weakness, nausea, vomiting and diarrhea. What
prompted her to come to the ER as when she fell twice and was unable to stand back up because she felt so weak. She denied any UTI symptoms. In the ED her blood pressure was 92/57, heart rate 125, respiratory rate 22, temp 99.5, WBC 19.7, Lactic
acid 1.8, Na 125, Cr 1.2 (baseline 0.6), UA Leukocyte esterase (+), 50-60 WBC, 0-2 squamous epithelia cells, moderate bacteria, AST 66, ALT 49. She was given 2 L of fluid and cefepime. She was admitted with diagnosis of sepsis secondary to UTI,
hyponatremia and LEON. She was started on maintenance IVF and switched to ceftriaxone. Her valsartan�hydrochlorothiazide was also held due to hypotension and hyponatremia. The next day her WBC was 17.2, sodium 126, creatinine 0.7. Fluids switched
to IVF with bicarb for non-anion gap met acidosis and ceftriaxone was continued. The next day her urine culture showed E. coli sensitive to ceftriaxone. Na improved. WBC continued to downtrend.
Today, the patient is clinically stable with white blood cell count was normal at 10.5. Patient's blood pressure stable. Sodium 134. AST 39, alkaline phosphatase 191. Patient feels significantly better and looking forward to going home. Culture
also showed sensitivity to Bactrim. Patient sent home on 10-days of Bactrim. Hydrochlorothiazide was also removed from patient's blood pressure medication. Patient will continue on valsartan 80 mg with recommendations to follow-up with PCP for
blood pressure medication readjustment. Recommend to follow-up with CMP with PCP as well.
Discharge Plan
-
Patient Disposition: Home (Routine Discharge)
Discharge Diagnosis/Procedures: Sepsis secondary to urinary tract infection, hyponatremia, acute kidney injury, hypotension, elevated transaminases,
Condition: Fair
Diet: As tolerated
Activity: No restrictions
Driving Restrictions: As prior to admission
Bathing Restrictions: None
Referrals:
Abdelrahman Trujillo, [Family Provider] - in less than 1 week
Additional Discharge Medication Instructions: Advised to see PCP in 1 week for any changes to blood pressure medication.
Prescriptions:
New
valsartan [Diovan] 80 mg tablet
80 mg PO DAILY Qty: 30 0RF
sulfamethoxazole-trimethoprim [Bactrim] 400-80 mg tablet
1 tab PO BID Qty: 20 0RF
Continued
polyvinyl alcohol 1.4 % Drops
1 drp BOTH EYES Q6HPRN PRN (Reason: dry eyes)
milk thistle 175 mg Tablet
175 mg PO HS
cyanocobalamin (vitamin B-12) 1,000 mcg Tablet
1,000 mcg PO DAILY
therapeutic multivitamin Tablet
1 tab PO DAILY
levothyroxine 88 mcg Tablet
88 mcg PO DAILY
pantoprazole 40 mg Tablet,Delayed Release (Dr/Ec)
40 mg PO DAILY
vitamin B complex Tablet
1 tab PO DAILY
ezetimibe 10 mg Tablet
10 mg PO DAILY
Tylenol Cold and Flu Severe 7-15-100-200 mg Tablet
2 tab PO Q6HPRN PRN (Reason: cold symptoms)
lutein 10 mg Tablet
10 mg PO HS
vitamin D3-vitamin K2 (MK4) 1,000-100 unit-mcg Tablet
1 tab PO DAILY
Discontinued
valsartan-hydrochlorothiazide 80-12.5 mg Tablet
1 tab PO DAILY
Discharge Orders:
Discharge Patient (As Directed); Ordered 01/30/24
Ordered By: Junior Perdue
Discharge Date and Time
Print Language: BAHRAINI
== END 2024-01-30 12:54 | disposition home or self-care (01) | DRG 872 ==
LOC: 4 EAST ACU 15:39
PROVIDERS: ADMITTING PHYSICIAN Internal Medicine; EMERGENCY PHYSICIAN Student in an Organized Health Care Education/Training Program; FAMILY PHYSICIAN Family Medicine
DX: A41.51 Sepsis due to Escherichia coli [E. coli] (principal); N39.0 Urinary tract infection, site not specified; E87.1 Hypo-osmolality and hyponatremia; N17.9 Acute kidney failure, unspecified; E87.20 Acidosis, unspecified; R65.20 Severe sepsis without septic shock; D64.9 Anemia, unspecified; E03.9 Hypothyroidism, unspecified; E78.5 Hyperlipidemia, unspecified; I95.9 Hypotension, unspecified; H35.30 Unspecified macular degeneration; I10 Essential (primary) hypertension; K21.9 Gastro-esophageal reflux disease without esophagitis; R74.01 Elevation of levels of liver transaminase levels; Z79.890 Hormone replacement therapy; Z87.440 Personal history of urinary (tract) infections; Z87.891 Personal history of nicotine dependence; Z11.52 Encounter for screening for COVID-19
CPT/HCPCS: 51701; 51798; 71046; 80053; 81003; 81015; 83036; 83605; 83930; 83935; 84300; 85025; 85027; 86803; 87040; 87086; 87088; 87186; 87502; 87811; 93005; 96361; 96374; 97161; 97165; 99285; J7030

== ENCOUNTER 2025-04-10 00:46 | Emergency (ER) | payer MEDICARE, OTHER, SELFPAY ==
[2025-04-10 00:56] VITALS: BP 134/75
[2025-04-10 02:22] LABS: Hematocrit 33.0 % (37.0-47.0); Hemoglobin 10.9 g/dL (12.0-16.0); Mean Corp Hgb Conc. 33.0 g/dL (33.0-37.0); Mean Corpuscular Volume 92.2 fL (81.0-99.0); Nucleated Red Blood Cells % 0 %; Platelet Count 350 10^3/uL (130-400); Red Cell Dist. Width 14.7 % (11.5-14.5)
[2025-04-10 02:42] LABS: Albumin 4.1 g/dl (3.5-5.0); Carbon Dioxide 31 mmol/L (22-30); Total Protein 6.7 g/dl (6.3-8.2); eGFR > 60.00
[2025-04-10 02:52] LABS: ALT (SGPT) 11 U/L (0-35); AST (SGOT) 22 U/L (14-36); Alkaline Phosphatase 56 U/L (38-126); Blood Urea Nitrogen 22 mg/dl (7-17); Calcium 9.3 mg/dl (8.4-10.2); Chloride 103 mmol/L (98-107); Glucose 120 mg/dl (70-99); Potassium 4.0 mmol/L (3.5-5.1); Sodium 140 mmol/L (135-145)
[2025-04-10 02:55] LABS: Troponin I < 0.012 ng/ml
[2025-04-10 03:24] VITALS: BP 131/65
[2025-04-10 03:25] VITALS: BMI 23.8
[2025-04-10 04:00] VITALS: BP 131/93
--- NOTE | 2025-04-10 04:08 | ED.GENMED ---
History of Present Illness
General
Chief Complaint: Chest Pain
Source: patient
Exam Limitations: none
Time Seen by Provider: 04/10/25 03:17
Nursing documentation reviewed up to this point in time: agreed with
History of Present Illness
History of Present Illness:
79-year-old female with history of hypertension who presents to the emergency department for evaluation of lower chest/upper abdominal pain. Patient reports onset of symptoms this evening while resting watching TV and have been constant since that
time. She reports pain across the upper abdomen under her rib cage that radiates towards the back. No clear triggering or relieving factors noted. She denies any associated shortness of breath. She denies any recent illness�no cough, fevers,
chills. She denies any vomiting but has had some mild nausea. No change in her bowels. She says she is occasionally had less intense pains in this area but never to this degree. She does have a history of GERD.
Past History
Past History
ED Past Medical History: Hypothyroidism and Other (diverticulitis)
ED Past Surgical History: Other (hysterectomy)
Social History
Drug: None
Personal:
Living: with family
Review of Systems
Review of Systems
All Other Systems: ROS reviewed and negative except as documented in HPI and ROS
Constitutional: Denies fever or chills
EENT: Denies sore throat or runny nose
Respiratory: Denies cough or trouble breathing
Cardiac: Reports chest pain; Denies palpitations
ABD/GI: Reports abdominal pain and nausea; Denies vomiting or diarrhea
: Denies flank pain
Musculoskeletal: Reports back pain; Denies neck pain
Neurological: Denies dizzy or headache
Phy Exam
Physical Exam
Physical Exam:
General: Awake, alert, oriented x3; no acute distress
Head: Normocephalic, atraumatic
Eyes: Conjunctiva normal, sclera anicteric
Throat: Airway intact, handling secretions
Neck: Trachea midline, supple without meningismus
Lungs: Clear to auscultation bilaterally, no wheezing, rales, rhonchi
Heart: Regular rate and rhythm, no murmurs, gallops, or rubs
Abd: Soft, non distended, mildly tender in the right upper abdomen
Neuro: Grossly intact
Skin: no rash in area of concern
Extremities: No edema in extremities, equal pulses in all extremities
Scores
Heart Failure Risk
Heart Failure Risk Score: Not Applicable
Heart Score for Chest Pain Patients
STEMI patient?: No
History: Slightly or Non-Suspicious
ECG: Normal
Age: >/= 65 years
Risk Factors: 1 or 2 Risk Factors
Troponin: </= Normal Limit
Heart Score for Chest Pain Patients: 3
Heart Score Risk: 2.5% MACE over next 6 weeks
Withdrawal Assessment of Alcohol
Withdrawal Assessment Completed?: Not applicable
Course
Orders/Labs/Results
Orders:
Orders
04/10/25 01:02
Electrocardiogram (*1) Urgent
Reason for Study: Other
Other Reason for Exam: Respiratory Distress
Cardiac Monitoring- Treatment ONCE
EKG- Treatment ONCE
IV Insert/Care/Rem.- Treatment PRN
CR Chest - 2 Views Urgent
Comment:
Reason For Exam: respiratory distress
O2 Therapy [RESP] Urgent
Titrate/Wean O2 to maintain O2 sat greater than (%): 93
Special Instructions: TO MAINTAIN CONTINUOUS O2 SATS >/= 93%
Pulse Ox/cont/shift [RESP] Urgent
Quantity: 1
Special Instructions: continuous pulse ox
04/10/25 02:06
Complete Blood Count/With Diff Urgent
Comprehensive Metabolic Panel Urgent
Lipase Urgent
Comment: ADD ON
NT-proBNP Urgent
Troponin I Urgent
04/10/25 04:07
US Abdomen Complete/Upper Urgent
Comment:
Reason For Exam: upper abd pain, nausea
04/10/25 05:36
Troponin I Urgent
Abnormal Lab Results
04/10/25
02:06
RBC 3.58 L 10^6/uL
(4.20-5.40)
Hgb 10.9 L g/dL
(12.0-16.0)
Hct 33.0 L %
(37.0-47.0)
RDW 14.7 H %
(11.5-14.5)
Monocytes % 10.2 H %
(1.7-9.3)
Carbon Dioxide 31 H mmol/L
(22-30)
BUN 22 H mg/dl
(7-17)
Glucose 120 H mg/dl
(70-99)
04/10/25 02:06
04/10/25 02:06
Vital Signs
Initial and Last Documented VS:
Initial Vital Signs
Temp Pulse Resp BP Pulse Ox
36.6 C 76 20 134/75 96
04/10/25 00:56 04/10/25 00:56 04/10/25 00:56 04/10/25 00:56 04/10/25 00:56
Last Documented Vital Signs
Temp Pulse Resp BP Pulse Ox
36.6 C 64 11 137/71 96
04/10/25 00:56 04/10/25 07:06 04/10/25 07:06 04/10/25 07:06 04/10/25 07:06
MDM/Problems Addressed
Differential Diagnosis Includes:
GERD, gastritis/PUD, cholelithiasis, cholecystitis, pancreatitis, angina/ACS, lower lobe pneumonia, pneumothorax, less likely PE or dissection clinically
MDM/Problems Addressed:
79-year-old female presents to the ER for evaluation of lower chest/upper abdominal pain started this evening and has been constant since onset. Vitals and exam as above. Labs were sent in triage including a CBC which shows marginal anemia, CMP no
clinically significant abnormalities�notably normal LFTs. Initial troponin sent in triage was undetectable, EKG showed sinus rhythm with no STEMI. Will check repeat troponin. Added lipase. Will check upper abdominal ultrasound. Trial green
grabber. Reassess after the above.
Repeat troponin negative. Lipase normal. Chest x-ray reviewed by me no acute abnormalities. Abdominal ultrasound showed cholelithiasis but no signs of cholecystitis. Clinical reassessment patient is still having pain but she says it is more on
the left side at present. Symptoms could be from cholelithiasis or gastritis/PUD. I spoke to the patient about clinical course for each of these diagnoses. Overall she feels her symptoms are not too bad and would prefer to try to go home and
follow-up as an outpatient on her symptoms. She is established with a GI group and I urged her to follow-up with them. In the meantime advised her to increase PPI and will start on Carafate. Advised her to avoid fatty foods. Spoke about return
precautions. All questions answered.
Chronic conditions affecting care:
GERD
*Radiology
Radiology exam reviewed: preliminary read by ED provider and radiology read reviewed
*Pulse Oximetry
SaO2: 96
Oxygen Mode of Delivery: Room air
Patient hypoxic: no (96%)
*EKG
Interpreted by ED Provider?: Yes
Comparison EKG: no changes
Heart Rate: 73
Rate: normal
Rhythm: sinus
[place]: normal axis
Interval: normal interval
QRS Pattern: normal QRS
Ischemia: no ischemia (No significant change from prior)
*Critical Care Note
Total Time (30-74mins, 75-104mins- exclusive of procedures): Not Applicable
Data Reviewed
Source: patient
ED Attending Note
-
Portions of this chart may have been created with voice recognition software.� Occasional wrong word or��sound alike� substitutions may have occurred due to the inherent limitations of voice recognition software.
Discharge Plan
Departure
Patient Disposition: Home (Routine Discharge)
Date of Disposition: 04/10/25
Time of Disposition: 07:25
Patient with high blood pressure during this ER visit?: No
Discharge Problem:
Abdominal pain, Cholelithiasis
Instructions: Peptic ulcers, Gallstones (DC)
Prescriptions:
New
pantoprazole 40 mg tablet,delayed release (DR/EC)
40 mg PO BID 14 Days Qty: 28 0RF
sucralfate 100 mg/mL suspension
10 ml PO ACHS Qty: 1000 0RF
No Action
polyvinyl alcohol 1.4 % Drops
1 drp BOTH EYES Q6HPRN PRN (Reason: dry eyes)
milk thistle 175 mg Tablet
175 mg PO HS
cyanocobalamin (vitamin B-12) 1,000 mcg Tablet
1,000 mcg PO DAILY
therapeutic multivitamin Tablet
1 tab PO DAILY
levothyroxine 88 mcg Tablet
88 mcg PO DAILY
pantoprazole 40 mg Tablet,Delayed Release (Dr/Ec)
40 mg PO DAILY
vitamin B complex Tablet
1 tab PO DAILY
ezetimibe 10 mg Tablet
10 mg PO DAILY
Tylenol Cold and Flu Severe 4-79-873-200 mg Tablet
2 tab PO Q6HPRN PRN (Reason: cold symptoms)
lutein 10 mg Tablet
10 mg PO HS
vitamin D3-vitamin K2 (MK4) 1,000-100 unit-mcg Tablet
1 tab PO DAILY
valsartan [Diovan] 80 mg tablet
80 mg PO DAILY Qty: 30 0RF
sulfamethoxazole-trimethoprim [Bactrim] 400-80 mg tablet
1 tab PO BID Qty: 20 0RF
Activity Restrictions/Additional Instructions:
Thank you for visiting the Emergency Department at [facility].
1. Please schedule a follow up appointment as directed. Call first thing tomorrow morning to make an appointment.
2. If indicated, please take your medications as instructed and indicated on discharge paperwork.
3. If any of your symptoms do not improve, or persist, or become more severe within 6-12 hours, please return to the emergency department for further care.
4. Please return to the emergency department if you develop a headache, neck pain/stiffness, fever greater than 100.4F, chest pain, shortness of breath, persistent nausea, vomiting, slurred speech, difficulty walking, numbness/tingling, weakness,
signs of infection or any other symptoms that are worrisome to you.
Please call [phone] if you have any questions.
Interventions
Interventions:
*Risk Screen - Suicide Last Done: 04/10/25 03:15
*ED- Fall Risk Assessment Last Done: 04/10/25 03:15
*ED COVID-19 Vaccine History Last Done: 04/10/25 03:15
*ED Influenza Vaccine History Last Done: 04/10/25 03:15
ED- Cardiac Assessment Last Done: 04/10/25 03:15
Discharge Date and Time
Print Language: MONEGASQUE
[2025-04-10 05:00] VITALS: BP 132/68
[2025-04-10 05:49] LABS: Lipase 262 U/L (23-300)
[2025-04-10 06:00] VITALS: BP 126/57
[2025-04-10 06:18] LABS: Troponin I < 0.012 ng/ml
[2025-04-10 07:06] VITALS: BP 137/71
[2025-04-10] MEDS: PROTONIX IV 40 MG IV (07:31)
[2025-04-10] MEDS: MAALOX 30 PO (07:31)
== END 2025-04-10 08:03 | disposition home or self-care (01) ==
LOC: EMR 00:46
PROVIDERS: Emergency Medicine; EMERGENCY PHYSICIAN Emergency Medicine; FAMILY PHYSICIAN Family Medicine
DX: K80.20 Calculus of gallbladder without cholecystitis without obstruction (principal); R10.10 Upper abdominal pain, unspecified; R07.89 Other chest pain; E03.9 Hypothyroidism, unspecified; I10 Essential (primary) hypertension
CPT/HCPCS: 99284; 96374; 71046; 76700; 80053; 83690; 83880; 84484; 85025; 93005